=== PATIENT | female | born 1970 | race Two or more races ===

== ENCOUNTER 2018-12-18 19:49 | Emergency (ER) | payer OTHER ==
[~2018-12-18] VITALS: Ht 167.6 cm; Wt 63.5 kg
[2018-12-18 19:28] VITALS: BP 108/67
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
== END 2018-12-18 21:00 | disposition left against medical advice (07) ==
LOC: EDBD 19:49 → EMR 21:00
DX: R07.9 Chest pain, unspecified (principal); Z88.0 Allergy status to penicillin; Z53.21 Procedure and treatment not carried out due to patient leaving prior to being seen by health care provider